=== PATIENT | female | born 1990 | race Caucasian/White ===

== ENCOUNTER → 2017-03-23 | Outpatient (REF) | payer SELFPAY | LOC: M LAB REF 17:09 | PROVIDERS: ATTEND Family Medicine | DX: R30.0 Dysuria (principal) ==

== ENCOUNTER → 2017-07-06 | Outpatient (REF) | payer OTHER ==
[~2017-07-06] MED LIST: PERC5TAB12 PO; PREN1TAB11 PO
[2017-07-06 13:57] LABS: MEAN CORPUSCULAR HEMOGLOBIN 30.3 pg (27.0-33.0); MEAN CORPUSCULAR HGB CONC 34.9 g/dl (32.0-36.5); MEAN CORPUSCULAR VOLUME 86.8 fl (80.0-96.0); RED CELL DISTRIBUTION WIDTH 12.1 % (11.5-14.5); WHITE BLOOD COUNT 5.9 K/mm3 (4.0-10.0)
[2017-07-06 14:54] LABS: HCG, SERUM QUANTITATIVE 30128 MIU/ML
== END ==
LOC: M LAB REF 12:14
PROVIDERS: ATTEND Obstetrics & Gynecology
DX: O36.80X0 Pregnancy with inconclusive fetal viability, not applicable or unspecified (principal); Z3A.00 Weeks of gestation of pregnancy not specified

== ENCOUNTER 2017-08-08 06:35 | Day surgery (SDC) | payer OTHER ==
[~2017-08-08] VITALS: Ht 167.6 cm; Wt 59.0 kg
[~2017-08-08 06:35] MED LIST changes: +LIDOCAINE 1% MDV 20ML VIAL As Ordered ONE; -PERC5TAB12 PO
[2017-08-08] MEDS ORDERED: LR 1,000 ML IV SCH (06:45)
[2017-08-08] MEDS ORDERED: ACETAMINOPHEN 650 MG SUPP PR ONE (06:45)
[2017-08-08] MEDS ORDERED: fentaNYL 100 MCG/2 ML INJECTION (J3010) As Ordered ONE (07:12)
[2017-08-08] MEDS ORDERED: PROPOFOL 200 MG/20 ML VIAL As Ordered ONE ×2 (07:12→07:51)
[2017-08-08] MEDS ORDERED: MIDAZOLAM INJ 5 MG/ML VIAL (J2250) As Ordered ONE (07:12)
[2017-08-08] MEDS ORDERED: GLYCOPYRROLATE INJ 0.2 MG/ML 2 ML VIAL As Ordered ONE (07:12)
[2017-08-08] MEDS ORDERED: LIDOCAINE 1% SDV INJ 30 ML VIAL As Ordered ONE (07:18)
[2017-08-08] MEDS ORDERED: ACETAMINOPHEN 650 MG SUPP As Ordered ONE (07:19)
[2017-08-08 07:24] LABS: MEAN CORPUSCULAR HEMOGLOBIN 29.9 pg (27.0-33.0); MEAN CORPUSCULAR HGB CONC 35.2 g/dl (32.0-36.5); RED CELL DISTRIBUTION WIDTH 12.5 % (11.5-14.5); WHITE BLOOD COUNT 7.2 10^3/uL (4.0-10.0)
[2017-08-08] MEDS ORDERED: PERC5TAB12 PO (07:47)
[2017-08-08] MEDS ORDERED: METHYLERGONOVINE MALEATE 0.2 MG/ML VIAL (J2210) As Ordered ONE (07:55)
[2017-08-08 09:00] VITALS: BP 110/66
--- NOTE | 2017-08-08 09:25 | RO ---
DATE OF PROCEDURE: 08/08/2017 Nazia is a 26-year-old female with history of missed AB on ultrasound. After counseling, a decision was made for suction dilatation and curettage. PREOPERATIVE DIAGNOSIS: Missed . POSTOPERATIVE DIAGNOSIS: Missed . PROCEDURE NOTE: Suction dilatation and curettage. SURGEON: Dr. Benitez Kumar. NUT THREADER: ANESTHESIA: MAC. COMPLICATIONS: None. ESTIMATED BLOOD LOSS: Less than 100 mL. SPECIMEN SENT TO THE LAB: Products of conception. FINDINGS: Numerous products of conception with some necrotic tissue. PROCEDURE: After obtaining informed consent, the patient was taken to the operating room where anesthetic was found to be adequate. She was then draped and prepped in usual sterile fashion in dorsal lithotomy position. Straight catheter bladder was performed for approximately 110 mL of clear urine. We then placed a weighted speculum in the posterior fornix of vagina. Using a Ly retractor, the anterior lip of the cervix and then grasped with a single-tooth tenaculum. The uterus was sound to approximately 10 cm in size. Cervix serially dilated. At this point an 8 mm suction curette was inserted. The endometrial cavity was cleared of all clot and debris. Then a sharp curettage of the endometrial lining done. The suction device was reinserted and the endometrial cavity cleared of all clot and debris. One dose of Methergine given in the OR . The patient tolerated procedure well. She was then transferred to recovery room in stable condition. [facility]ITAL[facility]
== END 2017-08-08 09:02 | disposition home or self-care (01) ==
LOC: M SDC 06:35
PROVIDERS: ATTEND Obstetrics & Gynecology
DX: O02.1 Missed abortion (principal)
CPT/HCPCS: 59820; 85027; 86850; 86900; 86901; 88305; J2210; J2250; J3010

== ENCOUNTER → 2017-10-27 | Outpatient (REF) | payer OTHER | LOC: M LAB REF 15:25 | DX: R30.0 Dysuria (principal) ==

== ENCOUNTER → 2017-12-11 | Outpatient (CLI) | payer OTHER ==
[2017-12-11 14:16] LABS: BASO % 0.4 % (0.0-1.0); EOS # 0.1 10^3/uL (0.0-0.50); EOS % 0.7 % (0.0-3.0); HEMATOCRIT 40.2 % (36.0-47.0); HEMOGLOBIN 13.9 g/dl (12.0-16.0); IMMATURE GRANULOCYTE % 0.4 % (0-3.0); LYMPH # 1.5 10^3/uL (1.5-6.5); LYMPH % 20.1 % (24.0-44.0); MEAN CORPUSCULAR HEMOGLOBIN 29.7 pg (27.0-33.0); MEAN CORPUSCULAR HGB CONC 34.6 g/dl (32.0-36.5); MEAN CORPUSCULAR VOLUME 85.9 fl (80.0-96.0); MONO # 0.6 10^3/uL (0.0-0.8); MONO % 7.3 % (0.0-5.0); NEUTROPHILS # 5.5 10^3/uL (1.8-7.7); NEUTROPHILS % 71.1 % (36.0-66.0); PLATELET COUNT, AUTOMATED 153 10^3/uL (150-450); RED BLOOD COUNT 4.68 10^6/uL (4.00-5.40); RED CELL DISTRIBUTION WIDTH 12.5 % (11.5-14.5); WHITE BLOOD COUNT 7.7 10^3/uL (4.0-10.0)
[2017-12-11 14:43] LABS: RUBELLA IgG QUALITATIVE IMMUNE (IMMUNE)
[2017-12-11 14:45] LABS: HBsAg Prenatal NEGATIVE (NEGATIVE)
[2017-12-11 15:13] LABS: HEPATITIS C VIRUS ABY INDEX < 0.0 INDEX (<0.8)
[2017-12-11 15:14] LABS: HIV 1&2 SCREEN CENTAUR NEGATIVE (NEGATIVE)
[2017-12-11 16:14] LABS: CHLAMYDIA DNA AMPLIFICATION NEGATIVE (NEGATIVE); GC DNA AMPLIFICATION NEGATIVE (NEGATIVE)
== END ==
LOC: M SMT 09:34
DX: Z34.81 Encounter for supervision of other normal pregnancy, first trimester (principal); Z3A.08 8 weeks gestation of pregnancy
CPT/HCPCS: 86762

== ENCOUNTER → 2018-02-21 | Outpatient (CLI) | payer OTHER | LOC: M RAD 14:41 | DX: Z34.82 Encounter for supervision of other normal pregnancy, second trimester (principal) ==

== ENCOUNTER → 2018-03-12 | Outpatient (CLI) | payer OTHER | LOC: M RAD 11:54 | DX: Z34.82 Encounter for supervision of other normal pregnancy, second trimester (principal); Z3A.21 21 weeks gestation of pregnancy | CPT/HCPCS: 76816 ==

== ENCOUNTER → 2018-04-19 | Outpatient (CLI) | payer OTHER ==
[2018-04-19 13:39] LABS: HEMATOCRIT 34.1 % (36.0-47.0); HEMOGLOBIN 11.6 g/dl (12.0-15.5); MEAN CORPUSCULAR HEMOGLOBIN 30.7 pg (27.0-33.0); MEAN CORPUSCULAR VOLUME 90.2 fl (80.0-96.0); PLATELET COUNT, AUTOMATED 131 10^3/uL (150-450); RED BLOOD COUNT 3.78 10^6/uL (4.00-5.40); RED CELL DISTRIBUTION WIDTH 13.9 % (11.5-14.5); WHITE BLOOD COUNT 7.5 10^3/uL (4.0-10.0)
[2018-04-19 14:33] LABS: GLUCOSE CHALLENGE TEST 1 HOUR 109 MG/DL (LESS THAN 140)
== END ==
LOC: M SMT 08:30
DX: Z34.82 Encounter for supervision of other normal pregnancy, second trimester (principal); Z36.89 Encounter for other specified antenatal screening
CPT/HCPCS: 82950

== ENCOUNTER → 2018-05-17 | Outpatient (CLI) | payer OTHER | LOC: M RAD 16:19 | DX: O26.843 Uterine size-date discrepancy, third trimester (principal); Z3A.31 31 weeks gestation of pregnancy | CPT/HCPCS: 76819 ==

== ENCOUNTER → 2018-06-25 | Outpatient (REF) | payer OTHER | LOC: M LAB REF 16:57 | DX: Z34.83 Encounter for supervision of other normal pregnancy, third trimester (principal) ==

== ENCOUNTER 2018-07-24 00:34 | Inpatient (IN) | payer OTHER ==
[2018-07-24 01:39] LABS: HEMATOCRIT 41.5 % (36.0-47.0); HEMOGLOBIN 14.7 g/dl (12.0-15.5); MEAN CORPUSCULAR HEMOGLOBIN 31.3 pg (27.0-33.0); MEAN CORPUSCULAR HGB CONC 35.4 g/dl (32.0-36.5); MEAN CORPUSCULAR VOLUME 88.3 fl (80.0-96.0); PLATELET COUNT, AUTOMATED 123 10^3/uL (150-450); RED CELL DISTRIBUTION WIDTH 12.5 % (11.5-14.5); WHITE BLOOD COUNT 19.4 10^3/uL (4.0-10.0)
[2018-07-24] MEDS ORDERED: FENTANYL 2MCG/ML ROPIVACAINE 0.2% IN 0.9% NACL 200ML IVBAG As Ordered (01:55)
[2018-07-24 02:17] LABS: TOTAL PROTEIN,RANDOM URINE 42.2 MG/DL (0.0-12.0)
[2018-07-24] MEDS: LACTATED RINGER'S 1000 ML IV (02:17)
[2018-07-24] MEDS: LR 1,000 ML IV (02:17)
[2018-07-24 02:19] LABS: ALT/SGPT 25 U/L (12-78); AST/SGOT 17 U/L (7-37); BILIRUBIN,TOTAL 0.4 MG/DL (0.2-1.0); CREATININE FOR GFR 0.71 MG/DL (0.55-1.30); GLOMERULAR FILTRATION RATE > 60.0 (>60); LDH LACTATE DEHYDROGENASE 198 U/L (84-246); URIC ACID 3.8 MG/DL (2.6-6.0)
[2018-07-24] MEDS ORDERED: REFRIGERATOR IV KEYS XX (03:00)
[2018-07-24] MEDS ORDERED: diphenhydrAMINE INJ 50MG/ML VIAL (J1200) IV (03:00)
[2018-07-24] MEDS ORDERED: FENTANYL/ROPIVACAINE/NACL BAG 200 ML EPIDURAL (03:00)
[2018-07-24] MEDS ORDERED: ePHEDrine SULFATE 25 MG/5 ML(5MG/ML) SYRINGE IV (03:00)
[2018-07-24] MEDS ORDERED: EPIDURAL/PCA KEYS XX (03:00)
[2018-07-24] MEDS ORDERED: LACTATED RINGER'S 1000 ML IV (03:00)
[2018-07-24] MEDS ORDERED: ONDANSETRON 4MG/2ML VIAL (J2405) IV (03:00)
[2018-07-24] MEDS ORDERED: EPIDURAL COMMENT XX (03:00)
[2018-07-24] MEDS ORDERED: NALOXONE INJ 0.4 MG/1 ML VIAL (J2310) IV (03:00)
[2018-07-24] MEDS ORDERED: LR 1,000 ML IV (03:09)
[2018-07-24] MEDS ORDERED: OXYTOCIN DRIP 30 UNITS in APPROPRIATE DILUENT 1 EA IV (03:15)
[2018-07-24] MEDS ORDERED: METHYLERGONOVINE MALEATE 0.2 MG TAB PO (08:00)
[2018-07-24] MEDS ORDERED: RHOGAM 300 MCG (1500 IU) INJ (J2790) IM (08:00)
[2018-07-24] MEDS ORDERED: DOCUSATE SODIUM 100 MG CAP PO (08:00)
[2018-07-24] MEDS ORDERED: DIBUCAINE 1% OINTMENT 30GM TOP (08:00)
[2018-07-24] MEDS ORDERED: MEASLES,MUMPS,RUBELLA VACCINE INJ (MMR-II) (90707) SC (08:00)
[2018-07-24] MEDS ORDERED: ANUSOL HC CREAM 30GM TOP (08:00)
[2018-07-24] MEDS ORDERED: MOM 30ML SUSPENSION UDC PO (08:00)
[2018-07-24] MEDS ORDERED: ACETAMINOPHEN 500 MG TAB PO (08:00)
[2018-07-24] MEDS: OXYTOCIN DRIP 30 UNITS in APPROPRIATE DILUENT 1 EA IV (09:45)
[2018-07-24] MEDS: PRENATAL VITAMINS CHEWABLE TABLET PO (09:45)
[2018-07-24] MEDS: IBUPROFEN 800 MG TAB PO (20:02)
[2018-07-25] MEDS: PRENATAL VITAMINS CHEWABLE TABLET PO (08:25)
[2018-07-25] MEDS: IBUPROFEN 800 MG TAB PO (08:26)
== END 2018-07-25 13:40 | disposition home or self-care (01) | DRG 775 ==
LOC: M LDO 00:34 → M LDI 01:12 → M OBS 10:30
PROC: 10E0XZZ Delivery of Products of Conception, External Approach (ICD-10-PCS; principal; 2018-07-24)
PROC: 0HQ9XZZ Repair Perineum Skin, External Approach (ICD-10-PCS; 2018-07-24)
DX: O48.0 Post-term pregnancy (principal); Z37.0 Single live birth; Z3A.40 40 weeks gestation of pregnancy; O70.0 First degree perineal laceration during delivery; O69.89X0 Labor and delivery complicated by other cord complications, not applicable or unspecified

== ENCOUNTER 2018-11-28 14:27 | Day surgery (SDC) | payer OTHER ==
[~2018-11-28] VITALS: Ht 167.6 cm; Wt 61.3 kg
[~2018-11-28 14:27] MED LIST changes: +IBUP-1114 PO; -LIDOCAINE 1% MDV 20ML VIAL As Ordered ONE; +LIDOCAINE 2% INJ 100 MG/5 ML SDV (FOR ANES.) As Ordered ONE; +MAPA500T2 PO; +MIDAZOLAM INJ 2 MG/2 ML VIAL (J2250) As Ordered ONE; +ONDANSETRON 4MG/2ML VIAL (J2405) As Ordered ONE; +PERC5TAB12 PO; +PROPOFOL 200 MG/20 ML VIAL As Ordered ONE; +dexameTHASONE 4 MG/ML 1ML VIAL (J1100) As Ordered ONE; +fentaNYL 100 MCG/2 ML INJECTION (J3010) As Ordered ONE
[2018-11-28 14:49] LABS: HEMATOCRIT 39.4 % (36.0-47.0); HEMOGLOBIN 13.3 g/dl (12.0-15.5); MEAN CORPUSCULAR HGB CONC 33.8 g/dl (32.0-36.5); MEAN CORPUSCULAR VOLUME 85.8 fl (80.0-96.0); PLATELET COUNT, AUTOMATED 164 10^3/uL (150-450); RED BLOOD COUNT 4.59 10^6/uL (4.00-5.40); WHITE BLOOD COUNT 4.9 10^3/uL (4.0-10.0)
[2018-11-28] MEDS ORDERED: LR 1,000 ML IV ONE (15:00)
[2018-11-28 15:56] LABS: URINE PREG TEST NEGATIVE (NEGATIVE)
[2018-11-28] MEDS ORDERED: ESTROGENS VAGINAL CREAM 30GM As Ordered ONE (16:24)
[2018-11-28] MEDS ORDERED: BUPIVACAINE HCL 0.25% 30 ML VIAL As Ordered ONE (16:24)
[2018-11-28] MEDS ORDERED: ePHEDrine SULFATE 25 MG/5 ML(5MG/ML) SYRINGE As Ordered ONE (16:49)
[2018-11-28] MEDS ORDERED: KETOROLAC 60 MG/2 ML VIAL (J1885) As Ordered ONE (17:43)
[2018-11-28] MEDS ORDERED: PERCOCET 5MG/325MG TAB PO PRN ×2 (18:15)
[2018-11-28] MEDS ORDERED: ONDANSETRON 4MG/2ML VIAL (J2405) IV PRN (18:15)
[2018-11-28] MEDS ORDERED: fentaNYL 100 MCG/2 ML INJECTION (J3010) IV PRN (18:15)
[2018-11-28] MEDS ORDERED: LR 1,000 ML IV SCH (18:15)
--- NOTE | 2018-11-28 18:20 | RO ---
DATE OF PROCEDURE: 11/28/2018 PREPROCEDURE DIAGNOSIS: Large [place]'s gland cyst of the vagina. POSTPROCEDURE DIAGNOSIS: Large [place] gland cyst of the vagina. OPERATIVE PROCEDURE: Marsupialization of [place]'s gland cyst. SURGEON: Mack Carrillo MD BUSINESS INTELLIGENCE DIRECTOR: ANESTHESIA: General endotracheal. ESTIMATED BLOOD LOSS: 100 mL URINE OUTPUT: 300 mL FINDINGS: 7 cm [place]'s gland cyst of the vagina. Normal bladder and urethra on cystoscopy. DESCRIPTION OF PROCEDURE: The patient was taken to the operating room where general endotracheal anesthesia was induced. She was prepped and draped in a sterile fashion in the dorsal lithotomy position. The cyst was mobilized and grasped with Allis clamps. A small incision was made in the vaginal mucosa overlying the cyst. The cyst wall was noted to be densely adherent to the vaginal mucosa. The cyst was entered and clear. Cyst fluid was noted. The vaginal mucosa was then opened sharply with Metzenbaum scissors. The edges of the vagina overlying the cyst were grasped with Allis clamps. The cyst was dissected sharply off the vaginal mucosa. It was noted that the cyst was densely adherent once again and there was significant bleeding from the edges where the cyst had been dissected off the vaginal wall. Excess vaginal mucosa was excised. The cyst was removed; probably approximately 90% of the cyst wall was excised. Decision was made due to bleeding, to perform marsupialization. So after excess vaginal mucosa was excised, #3-0 Vicryl suture was used to secure the vaginal mucosa to the remaining remnants of the cyst wall. Numerous [id number] sutures were placed. Good hemostasis was noted. The cyst appeared to be completely gone. Cystoscopy was performed using a 70 degrees cystoscope. As noted above, there was no evidence of injury to the bladder and the urethra also appeared normal. The bladder was emptied with 300 mL of clear yellow urine. Of note, grade 1 to 2 cystocele was also noted at the time of surgery. This was not repaired at the time of the procedure. Sponge, instrument and needle counts were correct. The patient was extubated and went to the recovery room in stable condition. [facility]
[2018-11-28 19:20] VITALS: BP 121/77
== END 2018-11-28 19:27 | disposition home or self-care (01) ==
LOC: M SDC 14:27
PROVIDERS: ATTEND Specialist
DX: N36.8 Other specified disorders of urethra (principal)
CPT/HCPCS: 36415; 53060; 84703; 85027; 88305; J1100; J1885; J2250; J2405; J3010

== ENCOUNTER → 2019-05-28 | Outpatient (CLI) | payer OTHER ==
[~2019-05-28] MED LIST changes: -LIDOCAINE 2% INJ 100 MG/5 ML SDV (FOR ANES.) As Ordered ONE; -MIDAZOLAM INJ 2 MG/2 ML VIAL (J2250) As Ordered ONE; -ONDANSETRON 4MG/2ML VIAL (J2405) As Ordered ONE; -PROPOFOL 200 MG/20 ML VIAL As Ordered ONE; -dexameTHASONE 4 MG/ML 1ML VIAL (J1100) As Ordered ONE; -fentaNYL 100 MCG/2 ML INJECTION (J3010) As Ordered ONE
[2019-05-28 15:13] LABS: BASO % 0.7 % (0.0-1.0); EOS # 0.1 10^3/uL (0.0-0.50); EOS % 1.1 % (0.0-3.0); HEMATOCRIT 42.4 % (36.0-47.0); HEMOGLOBIN 14.4 g/dl (12.0-15.5); LYMPH # 1.8 10^3/uL (1.5-6.5); LYMPH % 32.4 % (24.0-44.0); MEAN CORPUSCULAR HEMOGLOBIN 29.9 pg (27.0-33.0); MONO # 0.5 10^3/uL (0.0-0.8); MONO % 9.1 % (0.0-5.0); NEUTROPHILS # 3.2 10^3/uL (1.8-7.7); NEUTROPHILS % 56.5 % (36.0-66.0); PLATELET COUNT, AUTOMATED 138 10^3/uL (150-450); RED BLOOD COUNT 4.82 10^6/uL (4.00-5.40); WHITE BLOOD COUNT 5.6 10^3/uL (4.0-10.0)
[2019-05-28 17:10] LABS: CHLAMYDIA DNA AMPLIFICATION NEGATIVE (NEGATIVE); GC DNA AMPLIFICATION NEGATIVE (NEGATIVE)
[2019-05-29 12:22] LABS: HIV 1&2 SCREEN CENTAUR NEGATIVE (NEGATIVE); RUBELLA IgG QUALITATIVE IMMUNE (IMMUNE)
== END ==
LOC: M SMT 09:12
PROVIDERS: ATTEND Advanced Practice Midwife
DX: Z34.81 Encounter for supervision of other normal pregnancy, first trimester (principal); Z3A.01 Less than 8 weeks gestation of pregnancy

== ENCOUNTER → 2019-06-11 | Outpatient (REF) | payer OTHER | LOC: M LAB REF 12:42 | PROVIDERS: ATTEND Advanced Practice Midwife | DX: Z34.81 Encounter for supervision of other normal pregnancy, first trimester (principal) ==